=== PATIENT | male | born 1990 | race African-American/Black ===

== ENCOUNTER 2024-08-25 11:14 | Emergency (ER) | payer MEDICAID ==
[~2024-08-25] VITALS: Ht 170.2 cm; Wt 102.5 kg
[2024-08-25 11:23] VITALS: O2SAT 99
[2024-08-25] MEDS: IBUPROFEN 800MG TABLET PO ONE (11:48)
[2024-08-25] MEDS ORDERED: AMOX1TAB16 MT (11:54)
[2024-08-25] MEDS ORDERED: IBUP-2029 MT (11:54)
[2024-08-25 12:24] VITALS: BP 155/80; PULSE 62; RESP 14; TEMP 36.6; O2SAT 98
== END 2024-08-25 12:34 | disposition home or self-care (01) ==
LOC: ER 11:14
DX: K02.9 Dental caries, unspecified (principal)
CPT/HCPCS: 99283

== ENCOUNTER 2024-09-08 08:58 | Emergency (ER) | payer MEDICAID ==
[~2024-09-08] VITALS: Ht 170.2 cm; Wt 99.7 kg
[~2024-09-08 08:58] MED LIST: AMOX1TAB16 MT; IBUP-2029 MT
[2024-09-08 09:14] VITALS: TEMP 37.2; O2SAT 100
[2024-09-08] MEDS ORDERED: AMOX1TAB16 MT (09:38)
[2024-09-08] MEDS ORDERED: IBUP-2029 MT (09:38)
[2024-09-08] MEDS: KETOROLAC 30MG/ML VIAL IM ONE (09:45)
[2024-09-08 10:06] VITALS: BP 178/107; PULSE 60; RESP 16; O2SAT 99
== END 2024-09-08 10:27 | disposition home or self-care (01) ==
LOC: ER 08:58
DX: K04.7 Periapical abscess without sinus (principal); K02.9 Dental caries, unspecified
CPT/HCPCS: 99283

== ENCOUNTER 2025-02-09 09:06 | Emergency (ER) | payer OTHER ==
[~2025-02-09] VITALS: Ht 175.3 cm; Wt 95.0 kg
[~2025-02-09 09:06] MED LIST changes: +IBUP-1455 MT; -IBUP-2029 MT
[2025-02-09 09:10] VITALS: O2SAT 97
[2025-02-09] MEDS ORDERED: IBUPROFEN 600MG TABLET PO ONE (10:30)
[2025-02-09] MEDS ORDERED: CHLO473M2 MT (10:34)
[2025-02-09] MEDS ORDERED: BENZ9GEL TP (10:34)
[2025-02-09 10:45] VITALS: BP 170/94; PULSE 88; RESP 16; TEMP 36.8; O2SAT 100
== END 2025-02-09 10:50 | disposition home or self-care (01) ==
LOC: ER 09:06
DX: K04.8 Radicular cyst (principal); Z79.899 Other long term (current) drug therapy
CPT/HCPCS: 99283